=== PATIENT | female | born 1995 | race Two or more races ===

== ENCOUNTER 2022-11-25 22:23 | Emergency (ER) | payer OTHER ==
[~2022-11-25] VITALS: Ht 154.9 cm; Wt 80.0 kg
[2022-11-25] MEDS ORDERED: ROCURONIUM 10MG/ML 10ML VIAL IV ONE ×2 (22:39→22:48)
[2022-11-25] MEDS ORDERED: KETAMINE HCL 10 ML ONE (22:41)
[2022-11-25] MEDS ORDERED: PROPOFOL 100 ML IV ONE (22:44)
[2022-11-25] MEDS: PROPOFOL 100 ML IV SCH (22:48)
[2022-11-25] MEDS ORDERED: KETAMINE 50mg/ML 10ml Vial (500mg/10ml) IV ONE (22:48)
[2022-11-25] MEDS ORDERED: SODIUM CHLORIDE 0.9% 1,000 ML IV ONE (22:48)
[2022-11-25] MEDS ORDERED: NOREPINEPHRINE 8 MG/250ML KIT 250 ML IV ONE (22:51)
[2022-11-25] MEDS ORDERED: NOREPINEPHRINE 8 MG/250ML KIT 250 ML IV SCH (23:00)
[2022-11-25] MEDS ORDERED: IOHEXOL 350 MG/ML 100ML IJ ONE (23:10)
[2022-11-25 23:15] LABS: Basophils # (auto) 0 10 ^3/uL (0-0.2); Eosinophils # (auto) 0.1 10 ^3/uL (0-0.8); Hemoglobin 10.3 g/dL (12.2-16.2); Monocytes # (auto) 0.7 10 ^3/uL (0-1.3); Neutrophils # (auto) 5.8 10 ^3/uL (1.6-8.6); Nucleated Red Blood Cells % 0.1 %
[2022-11-25 23:17] LABS: Basophils % (auto) 0.4 % (0.0-2.0); Eosinophils % (auto) 1.1 % (0.0-7.0); Hematocrit 32.6 % (36.0-46.0); Lymphocytes # (auto) 3.4 10 ^3/uL (0.4-5.4); Lymphocytes % (auto) 33.7 % (10.0-50.0); Mean Corpuscular Hemoglobin 25.6 pg (28.0-32.0); Mean Corpuscular Hgb Conc. 31.6 g/dL (32.0-36.0); Mean Corpuscular Volume 81.1 fL (80.0-100.0); Monocytes % (auto) 6.7 % (0.0-12.0); Neutrophils % (auto) 58.1 % (37.0-80.0); Red Blood Cells 4.03 10^6/uL (4.0-5.20); Red Cell Distribution Width 14.7 % (11.8-14.3)
[2022-11-25 23:24] LABS: INR 0.92 (0.9-1.15)
[2022-11-25 23:37] LABS: Albumin 2.8 g/dL (3.4-5.0); BUN/Creatinine Ratio 22.6; Calcium 8.8 mg/dL (8.5-10.1); Potassium 3.5 mmol/L (3.5-5.1); Salicylate < 1.7 mg/dL (2.8-20.0)
[2022-11-25 23:40] LABS: Bilirubin, Total 0.2 mg/dL (0.2-1.0); Total Protein 7.4 g/dL (6.4-8.2)
[2022-11-26] MEDS ORDERED: PROPOFOL 10 MG/ML 20 ML IV ONE (00:10)
[2022-11-26] MEDS ORDERED: KETAMINE 50mg/ML 10ml Vial (500mg/10ml) IV ONE ×2 (00:10→01:00)
[2022-11-26 00:18] LABS: Alcohol, Urine < 3.0 mg/dL (0-10); Amphetamine Screen, Urine NEGATIVE (NEGATIVE); Barbiturate Scree,Urine NEGATIVE (NEGATIVE); Benzodiazephine Screen, Urine NEGATIVE (NEGATIVE); Cannabinoid Screen, Urine NEGATIVE (NEGATIVE); Cocaine Screen, Urine NEGATIVE (NEGATIVE); Opiate Scree,Urine NEGATIVE (NEGATIVE); Phencyclidine Screen, Urine NEGATIVE (NEGATIVE)
[2022-11-26 00:24] LABS: Urine Bacteria FEW /hpf (None Seen); Urine Blood Negative /uL (Negative); Urine Mucus FEW (None Seen); Urine Specific Gravity 1.031 (1.001-1.035); Urine WBC 62 /hpf (0 - 5)
[2022-11-26] MEDS ORDERED: fentaNYL CITRATE 5 ML ONE (00:34)
[2022-11-26] MEDS ORDERED: SODIUM CHLORIDE 0.9% 1,000 ML IV ONE (00:40)
[2022-11-26 00:41] LABS: Acetaminophen < 2.0 ug/mL (10-30)
[2022-11-26] MEDS ORDERED: fentaNYL CITRATE 100 MCG/2 ML VL IV ONE (00:45)
[2022-11-26] MEDS: KETAMINE HCL IV SCH ×2 (01:35→10:05)
[2022-11-26] MEDS: SODIUM CHL 0.9% IV SCH ×2 (01:35→10:05)
[2022-11-26] MEDS ORDERED: ROCURONIUM 10MG/ML 10ML VIAL IV ONE ×3 (02:30→06:30)
[2022-11-26] MEDS: PROPOFOL 100 ML IV SCH (02:50)
[2022-11-26] MEDS ORDERED: cefTRIAXone 1GM/50ML D5W 50 ML IV ONE (03:30)
[2022-11-26] MEDS ORDERED: AZITHROMYCIN 500MG/ 250ML 250 ML IV ONE (05:15)
[2022-11-26] MEDS ORDERED: DexAMETHasone INJECTION 10 MG in D5W 5% 50 ML IV ONE (05:15)
[2022-11-26] MEDS ORDERED: DexAMETHasone SOD PHOS 10MG/1ML VIAL INJ ONE (06:33)
[2022-11-26 06:34] VITALS: BP 106/69
[2022-11-26] MEDS ORDERED: fentaNYL Drip 2500mCg/250mlNS 250 ML IV ONE (08:09)
[2022-11-26] MEDS ORDERED: fentaNYL Drip 2500mCg/250mlNS 250 ML IV SCH (08:15)
[2022-11-26 10:10] VITALS: BP 93/56
[2022-11-26 12:06] VITALS: BP 96/56
[2022-11-26 13:45] VITALS: BP 89/57
== END 2022-11-26 14:48 | disposition short-term general hospital (02) ==
LOC: ER 22:30
DX: O99.512 Diseases of the respiratory system complicating pregnancy, second trimester (principal); R06.03 Acute respiratory distress; R09.02 Hypoxemia; R06.02 Shortness of breath; J18.9 Pneumonia, unspecified organism; O26.891 Other specified pregnancy related conditions, first trimester; R10.2 Pelvic and perineal pain; R07.89 Other chest pain; Z3A.23 23 weeks gestation of pregnancy; Z53.21 Procedure and treatment not carried out due to patient leaving prior to being seen by health care provider
CPT/HCPCS: 31500; 36415; 36600; 71045; 71275; 76805; 80053; 80307; 80329; 81001; 82010; 82553; 82805; 82962; 83605; 83690; 83735; 83930; 84484; 84702; 85025; 85379; 85610; 85730; 87070; 87205; 87426; 87804; 93005; 94002; 96365; 96366; 96367; 96368; 96375; 96376; 99291; J0456; J0696; J1100; J2704; J3010; J7030; J7050; J7060; Q9967

== ENCOUNTER 2022-12-12 01:05 | Emergency (ER) | payer OTHER ==
[~2022-12-12] VITALS: Ht 162.6 cm; Wt 82.0 kg
[2022-12-12 01:45] LABS: Basophils # (auto) 0 10 ^3/uL (0-0.2); Basophils % (auto) 0.4 % (0.0-2.0); Eosinophils # (auto) 0.1 10 ^3/uL (0-0.8); Hemoglobin 10.3 g/dL (12.2-16.2); Nucleated Red Blood Cells % 0.1 %
[2022-12-12 01:47] LABS: Eosinophils % (auto) 1.1 % (0.0-7.0); Hematocrit 31.7 % (36.0-46.0); Lymphocytes # (auto) 2.5 10 ^3/uL (0.4-5.4); Lymphocytes % (auto) 22.9 % (10.0-50.0); Mean Corpuscular Hemoglobin 26.2 pg (28.0-32.0); Mean Corpuscular Hgb Conc. 32.5 g/dL (32.0-36.0); Mean Corpuscular Volume 80.7 fL (80.0-100.0); Monocytes # (auto) 0.7 10 ^3/uL (0-1.3); Monocytes % (auto) 6.2 % (0.0-12.0); Neutrophils # (auto) 7.6 10 ^3/uL (1.6-8.6); Neutrophils % (auto) 69.4 % (37.0-80.0); Red Blood Cells 3.93 10^6/uL (4.0-5.20); Red Cell Distribution Width 15.6 % (11.8-14.3); White Blood Cell 10.9 10^3/uL (4.4-10.8)
[2022-12-12 02:04] LABS: Albumin 2.7 g/dL (3.4-5.0); BUN/Creatinine Ratio 20.4; Calcium 8.9 mg/dL (8.5-10.1); Potassium 3.6 mmol/L (3.5-5.1)
[2022-12-12 02:07] LABS: Bilirubin, Total 0.1 mg/dL (0.2-1.0); Total Protein 7.3 g/dL (6.4-8.2)
[2022-12-12] MEDS: ACETAMINOPHEN 500 MG TAB PO ONE ×2 (02:09→04:21)
[2022-12-12] MEDS ORDERED: ONDANSETRON HCL 4 MG/2 ML VIAL IV ONE (02:15)
[2022-12-12 06:53] VITALS: BP 100/63
== END 2022-12-12 07:05 | disposition short-term general hospital (02) ==
LOC: ER 01:06
DX: O99.512 Diseases of the respiratory system complicating pregnancy, second trimester (principal); R07.89 Other chest pain; R06.03 Acute respiratory distress; O26.891 Other specified pregnancy related conditions, first trimester; R10.2 Pelvic and perineal pain; Z3A.26 26 weeks gestation of pregnancy
CPT/HCPCS: 36415; 71045; 80053; 83880; 84484; 84702; 85025; 93005; 96374; 99285; J2405